=== PATIENT | female | born 1965 | race Caucasian/White ===

== ENCOUNTER → 2017-03-30 | Outpatient (CLI) | payer OTHER ==
[~2017-03-30] MED LIST: ALBU90OI INH; ALBUIS; Accuneb0.63 MG/3 INH; Accuneb1.25 MG/3 INH; BENZ100A PO; Bactrim Ds Tab1 EACH PO; Buspirone HCl30 MG PO; CEPH500 PO; CLON.5 PO; CLON1 PO; CONEST.625 PO; CYCL10 PO; Coumadin5 MG PO; Cyclobenzaprine5 MG PO; DOXE10 PO; ENOX100I SC; ENOX120I SC; ENOX40I SC; EPIN.3I IM; Epipen0.3 MG/0.3 IM; FLUSAL2505 INH; FURO40 PO; GABA400 PO; GABA600 PO; HYDR1TAB94 PO; LIDO5TP TOP; LIDO700A20 TOP; LORA10 PO; METF500 PO; METF500C PO; METPRE4DP PO; MONT10T PO; Micro-K10 MEQ; Miralax17 GM PO; NICO7 TOP; NYST100P TOP; Norco 10-325 T1 EACH PO; Norco 5-325 Ta1 EACH PO; Norco 7.5-3251 EACH PO; OMEP20ER PO; OMEP40CA12 PO; OXYACE5T PO; OXYC5 PO; Omeprazole20 M1 PO; PANT40 PO; PRAZ1 PO; PRAZ2 PO; PRAZ5 PO; PRED10 PO; PREG75 PO; PROBIOTIC1 EACH PO; PRODEXEL PO; Pepcid20 MG PO; Percocet 5-3251 EACH PO; Prednisone20 MG PO; QUET100 PO; Roxicodone5 MG PO; SERT100 PO; TOPI25 PO; TRAM50 PO; Ultram50 MG PO; VENL150ER PO; VENL75ER PO; Valerian Root500 MG PO; Ventolin Soln3 ML INH; Ventolin/Prove6.7 GM INH; WARF3; WARF3 PO; WARF4 PO
== END ==
LOC: LAB 16:46
PROVIDERS: Student in an Organized Health Care Education/Training Program
DX: B00.9 Herpesviral infection, unspecified (principal)
CPT/HCPCS: 87798

== ENCOUNTER → 2017-09-23 | Outpatient (CLI) | payer OTHER ==
[~2017-09-23] MED LIST changes: -LIDO700A20 TOP; -Miralax17 GM PO; -Norco 10-325 T1 EACH PO; -Norco 7.5-3251 EACH PO; -PANT40 PO; -PRAZ5 PO; -PREG75 PO; -PROBIOTIC1 EACH PO; -VENL150ER PO
== END | disposition home or self-care (01) ==
LOC: LAB SHORT 16:56 → LAB EV 16:56
DX: L02.216 Cutaneous abscess of umbilicus (principal)
CPT/HCPCS: 87070; 87075; 87205

== ENCOUNTER → 2017-09-25 | Outpatient (CLI) | payer OTHER ==
[~2017-09-25] MED LIST changes: +Norco 7.5-3251 EACH PO; +PANT40 PO; +PRAZ5 PO; +PREG75 PO; +VENL150ER PO
[2017-09-25 15:06] LABS: BASOPHILS ABSOLUTE AUTO 0.02 K/mm3 (0.00-0.23); BASOPHILS PERCENT AUTO 0 % (0-2); EOSINOPHILS PERCENT AUTO 0 % (0-6); IMMATURE GRAN ABSOLUTE AUTO 0.02 K/mm3 (0.00-0.10); IMMATURE GRAN PERCENT AUTO 0 % (0-1); LYMPHOCYTES PERCENT AUTO 27 % (21-46); MONOCYTES PERCENT AUTO 6 % (4-13); Mean Corpuscular HGB 32.3 pg (26.0-34.0); Mean Corpuscular HGB Conc 33.3 g/dL (31.5-36.5); Mean Corpuscular Volume 97 fL (80-100); Mean Platelet Volume 10.4 fL (9.1-12.4); NEUTROPHILS ABSOLUTE AUTO 4.75 K/mm3 (1.96-9.15); NEUTROPHILS PERCENT AUTO 67 % (41-73); Platelet Count 162 K/mm3 (150-400); RDW Coefficient Variation 13.8 % (11.7-14.2); RDW Standard Deviation 49.2 fL (35.1-46.3); Red Blood Cell Count 4.65 M/mm3 (3.80-5.20); White Blood Cell Count 7.09 K/mm3 (4.00-11.30)
[2017-09-25 15:21] LABS: Alanine Aminotransfer (ALT/SGP 28 U/L (12-78); Albumin, Blood 3.9 g/dL (3.4-5.0); Albumin/Globulin Ratio 1.1 (0.8-1.8); Alk Phos 64 U/L (40-126); Anion Gap 8 mmol/L (6-16); Aspartate Aminotrans (AST/SGOT 20 U/L (12-37); Bilirubin, Total 0.4 mg/dL (0.1-1.0); Blood Urea Nitrogen 10 mg/dL (8-24); Bun/Creatinine Ratio 13.5 (12.0-20.0); CO2, Blood 27 mmol/L (21-32); Calcium, Blood 9.1 mg/dL (8.5-10.1); Chloride, Blood 105 mmol/L (98-108); Creatinine, Blood 0.74 mg/dL (0.40-1.00); Globulin, Blood 3.6 g/dL (2.2-4.0); Glomerular Filtration Rate >60 (60-); Glucose, Blood 89 mg/dL (70-99); Potassium, Blood 4.2 mmol/L (3.5-5.5); Sodium, Blood 140 mmol/L (136-145); Total Protein, Blood 7.5 g/dL (6.4-8.2)
== END ==
LOC: LAB SHORT 15:00 → LAB EV 15:00
PROVIDERS: Physician Assistant Surgical
DX: L03.90 Cellulitis, unspecified (principal)
CPT/HCPCS: 80053; 83880; 85025

== ENCOUNTER 2017-10-03 13:38 | Observation (INO) | payer OTHER ==
[~2017-10-03] VITALS: Ht 177.8 cm; Wt 114.8 kg
[~2017-10-03 13:38] MED LIST changes: -Norco 7.5-3251 EACH PO; -PANT40 PO; -PRAZ5 PO; -PREG75 PO; -VENL150ER PO
[2017-10-03 15:00] LABS: BASOPHILS ABSOLUTE AUTO 0.02 K/mm3 (0.00-0.23); BASOPHILS PERCENT AUTO 0 % (0-2); EOSINOPHILS PERCENT AUTO 0 % (0-6); Hematocrit 43.2 % (33.0-51.0); Hemoglobin 14.2 g/dL (11.5-16.0); IMMATURE GRAN ABSOLUTE AUTO 0.02 K/mm3 (0.00-0.10); IMMATURE GRAN PERCENT AUTO 0 % (0-1); LYMPHOCYTES ABSOLUTE AUTO 2.25 K/mm3 (0.84-5.20); LYMPHOCYTES PERCENT AUTO 29 % (21-46); MONOCYTES ABSOLUTE AUTO 0.38 K/mm3 (0.16-1.47); MONOCYTES PERCENT AUTO 5 % (4-13); Mean Corpuscular HGB Conc 32.9 g/dL (31.5-36.5); Mean Corpuscular Volume 97 fL (80-100); Mean Platelet Volume 10.5 fL (9.1-12.4); NEUTROPHILS ABSOLUTE AUTO 5.12 K/mm3 (1.96-9.15); NEUTROPHILS PERCENT AUTO 66 % (41-73); Platelet Count 160 K/mm3 (150-400); RDW Coefficient Variation 13.3 % (11.7-14.2); RDW Standard Deviation 47.2 fL (35.1-46.3); Red Blood Cell Count 4.44 M/mm3 (3.80-5.20); White Blood Cell Count 7.79 K/mm3 (4.00-11.30)
[2017-10-03 15:19] LABS: Alanine Aminotransfer (ALT/SGP 22 U/L (12-78); Albumin, Blood 3.6 g/dL (3.4-5.0); Albumin/Globulin Ratio 1.1 (0.8-1.8); Alk Phos 56 U/L (50-136); Anion Gap 8 mmol/L (6-16); Aspartate Aminotrans (AST/SGOT 18 U/L (12-37); Bilirubin, Total 0.3 mg/dL (0.1-1.0); Blood Urea Nitrogen 13 mg/dL (8-24); Bun/Creatinine Ratio 21.8 (12.0-20.0); CO2, Blood 28 mmol/L (21-32); Calcium, Blood 8.8 mg/dL (8.5-10.1); Chloride, Blood 108 mmol/L (98-108); Globulin, Blood 3.3 g/dL (2.2-4.0); Glomerular Filtration Rate >60 (60-); Glucose, Blood 90 mg/dL (70-99); Potassium, Blood 3.9 mmol/L (3.5-5.5); Sodium, Blood 144 mmol/L (136-145); Total Protein, Blood 6.9 g/dL (6.4-8.2)
[2017-10-03] MEDS ORDERED: PREG75 PO ×2 (16:11)
[2017-10-03] MEDS ORDERED: PRAZ5 PO ×2 (16:11)
[2017-10-03] MEDS ORDERED: VENL150ER PO ×2 (16:12)
[2017-10-03] MEDS ORDERED: Norco 7.5-3251 EACH PO ×2 (18:33)
[2017-10-03] MEDS ORDERED: PANT40 PO ×2 (18:35)
[2017-10-04 04:56] LABS: BASOPHILS ABSOLUTE AUTO 0.02 K/mm3 (0.00-0.23); BASOPHILS PERCENT AUTO 0 % (0-2); EOSINOPHILS PERCENT AUTO 0 % (0-6); Hematocrit 39.3 % (33.0-51.0); Hemoglobin 12.8 g/dL (11.5-16.0); IMMATURE GRAN ABSOLUTE AUTO 0.01 K/mm3 (0.00-0.10); IMMATURE GRAN PERCENT AUTO 0 % (0-1); LYMPHOCYTES ABSOLUTE AUTO 2.89 K/mm3 (0.84-5.20); LYMPHOCYTES PERCENT AUTO 42 % (21-46); MONOCYTES ABSOLUTE AUTO 0.39 K/mm3 (0.16-1.47); MONOCYTES PERCENT AUTO 6 % (4-13); Mean Corpuscular HGB 31.7 pg (26.0-34.0); Mean Corpuscular HGB Conc 32.6 g/dL (31.5-36.5); Mean Corpuscular Volume 97 fL (80-100); Mean Platelet Volume 10.8 fL (9.1-12.4); NEUTROPHILS ABSOLUTE AUTO 3.55 K/mm3 (1.96-9.15); NEUTROPHILS PERCENT AUTO 52 % (41-73); Platelet Count 157 K/mm3 (150-400); RDW Coefficient Variation 13.2 % (11.7-14.2); RDW Standard Deviation 47.6 fL (35.1-46.3); Red Blood Cell Count 4.04 M/mm3 (3.80-5.20); White Blood Cell Count 6.86 K/mm3 (4.00-11.30)
[2017-10-04 05:25] LABS: Alanine Aminotransfer (ALT/SGP 18 U/L (12-78); Alk Phos 49 U/L (50-136); Anion Gap 8 mmol/L (6-16); Aspartate Aminotrans (AST/SGOT 16 U/L (12-37); Bilirubin, Total 0.4 mg/dL (0.1-1.0); Blood Urea Nitrogen 13 mg/dL (8-24); Bun/Creatinine Ratio 20.7 (12.0-20.0); CO2, Blood 27 mmol/L (21-32); Calcium, Blood 8.2 mg/dL (8.5-10.1); Chloride, Blood 109 mmol/L (98-108); Creatinine, Blood 0.63 mg/dL (0.40-1.00); Globulin, Blood 2.9 g/dL (2.2-4.0); Glomerular Filtration Rate >60 (60-); Glucose, Blood 84 mg/dL (70-99); Magnesium, Blood 1.9 mg/dL (1.6-2.4); Potassium, Blood 3.6 mmol/L (3.5-5.5); Sodium, Blood 144 mmol/L (136-145); Total Protein, Blood 5.9 g/dL (6.4-8.2)
[2017-10-05 08:47] LABS: Vancomycin, Trough 13.5 ug/mL (5.0-10.0)
[2017-10-06 05:41] LABS: BASOPHILS ABSOLUTE AUTO 0.01 K/mm3 (0.00-0.23); BASOPHILS PERCENT AUTO 0 % (0-2); EOSINOPHILS ABSOLUTE AUTO 0.01 K/mm3 (0.00-0.68); EOSINOPHILS PERCENT AUTO 0 % (0-6); Hematocrit 39.2 % (33.0-51.0); Hemoglobin 12.9 g/dL (11.5-16.0); IMMATURE GRAN ABSOLUTE AUTO 0.02 K/mm3 (0.00-0.10); IMMATURE GRAN PERCENT AUTO 0 % (0-1); LYMPHOCYTES ABSOLUTE AUTO 2.46 K/mm3 (0.84-5.20); LYMPHOCYTES PERCENT AUTO 44 % (21-46); MONOCYTES ABSOLUTE AUTO 0.43 K/mm3 (0.16-1.47); MONOCYTES PERCENT AUTO 8 % (4-13); Mean Corpuscular HGB 32.7 pg (26.0-34.0); Mean Corpuscular HGB Conc 32.9 g/dL (31.5-36.5); Mean Corpuscular Volume 99 fL (80-100); Mean Platelet Volume 10.4 fL (9.1-12.4); NEUTROPHILS ABSOLUTE AUTO 2.73 K/mm3 (1.96-9.15); NEUTROPHILS PERCENT AUTO 48 % (41-73); Platelet Count 154 K/mm3 (150-400); RDW Coefficient Variation 13.2 % (11.7-14.2); RDW Standard Deviation 48.3 fL (35.1-46.3); Red Blood Cell Count 3.95 M/mm3 (3.80-5.20); White Blood Cell Count 5.66 K/mm3 (4.00-11.30)
[2017-10-06 05:59] LABS: Anion Gap 7 mmol/L (6-16); Blood Urea Nitrogen 11 mg/dL (8-24); Bun/Creatinine Ratio 18.2 (12.0-20.0); CO2, Blood 29 mmol/L (21-32); Calcium, Blood 8.4 mg/dL (8.5-10.1); Chloride, Blood 108 mmol/L (98-108); Creatinine, Blood 0.61 mg/dL (0.40-1.00); Glomerular Filtration Rate >60 (60-); Glucose, Blood 87 mg/dL (70-99); Sodium, Blood 144 mmol/L (136-145)
[2017-10-07] MEDS ORDERED: Norco 10-325 T1 EACH PO ×2 (16:24)
[2017-10-07] MEDS ORDERED: Miralax17 GM PO ×2 (16:26)
[2017-10-07] MEDS ORDERED: CEPH500 PO ×2 (16:26)
[2017-10-07] MEDS ORDERED: PROBIOTIC1 EACH PO ×2 (16:27)
== END 2017-10-07 18:04 | disposition home or self-care (01) ==
LOC: ER 13:38 → MEDS 13:39 → ER 16:33 → MEDS 17:49 → ENPENDDIS 10-07 16:00 → MEDS 10-07 18:04
PROVIDERS: Internal Medicine; Physician Assistant
DX: L98.499 Non-pressure chronic ulcer of skin of other sites with unspecified severity (principal); L03.316 Cellulitis of umbilicus; E11.9 Type 2 diabetes mellitus without complications; J44.9 Chronic obstructive pulmonary disease, unspecified; E66.9 Obesity, unspecified; F17.200 Nicotine dependence, unspecified, uncomplicated; Z79.899 Other long term (current) drug therapy; Z88.6 Allergy status to analgesic agent; Z88.8 Allergy status to other drugs, medicaments and biological substances
CPT/HCPCS: 36415; 74177; 80048; 80053; 80202; 82947; 83036; 83735; 85025; 94760; 96365; 96366; 96367; 96375; 96376; 99284-25; G0378; J0690; J1650; J2543; J3010; J3370; J7030; J7050; Q9967

== ENCOUNTER 2017-10-11 01:57 | Emergency (ER) | payer OTHER ==
[~2017-10-11] VITALS: Ht 177.8 cm; Wt 129.3 kg
[~2017-10-11 01:57] MED LIST changes: +Miralax17 GM PO; +Norco 10-325 T1 EACH PO; +Norco 7.5-3251 EACH PO; +PANT40 PO; +PRAZ5 PO; +PREG75 PO; +PROBIOTIC1 EACH PO; +VENL150ER PO
[2017-10-11] MEDS ORDERED: Bactrim Ds Tab1 EACH PO (03:03)
== END 2017-10-11 03:12 | disposition home or self-care (01) ==
LOC: ER 01:57
DX: L03.316 Cellulitis of umbilicus (principal); L98.499 Non-pressure chronic ulcer of skin of other sites with unspecified severity; F32.9 Major depressive disorder, single episode, unspecified; E11.40 Type 2 diabetes mellitus with diabetic neuropathy, unspecified; F41.9 Anxiety disorder, unspecified; J44.9 Chronic obstructive pulmonary disease, unspecified; F17.200 Nicotine dependence, unspecified, uncomplicated; Z88.8 Allergy status to other drugs, medicaments and biological substances; Z88.6 Allergy status to analgesic agent; Z88.5 Allergy status to narcotic agent; Z79.899 Other long term (current) drug therapy; Z79.84 Long term (current) use of oral hypoglycemic drugs
CPT/HCPCS: 87070; 87077; 87186; 87205; 99283

== ENCOUNTER 2017-10-14 17:05 | Emergency (ER) | payer OTHER ==
[~2017-10-14] VITALS: Ht 177.8 cm; Wt 114.8 kg
== END 2017-10-14 17:41 | disposition home or self-care (01) ==
LOC: ER 17:05
DX: L98.499 Non-pressure chronic ulcer of skin of other sites with unspecified severity (principal); E11.40 Type 2 diabetes mellitus with diabetic neuropathy, unspecified; F32.9 Major depressive disorder, single episode, unspecified; F41.9 Anxiety disorder, unspecified; J44.9 Chronic obstructive pulmonary disease, unspecified; F17.200 Nicotine dependence, unspecified, uncomplicated; Z88.8 Allergy status to other drugs, medicaments and biological substances; Z88.6 Allergy status to analgesic agent; Z88.5 Allergy status to narcotic agent; Z79.899 Other long term (current) drug therapy; Z79.84 Long term (current) use of oral hypoglycemic drugs; Z79.51 Long term (current) use of inhaled steroids
CPT/HCPCS: 99282

== ENCOUNTER 2017-11-08 17:17 | Emergency (ER) | payer OTHER ==
[~2017-11-08] VITALS: Ht 177.8 cm; Wt 108.9 kg
[2017-11-08 18:47] LABS: BASOPHILS ABSOLUTE AUTO 0.01 K/mm3 (0.00-0.23); BASOPHILS PERCENT AUTO 0 % (0-2); EOSINOPHILS ABSOLUTE AUTO 0.01 K/mm3 (0.00-0.68); EOSINOPHILS PERCENT AUTO 0 % (0-6); Hematocrit 42.8 % (33.0-51.0); Hemoglobin 14.2 g/dL (11.5-16.0); IMMATURE GRAN ABSOLUTE AUTO 0.02 K/mm3 (0.00-0.10); IMMATURE GRAN PERCENT AUTO 0 % (0-1); LYMPHOCYTES PERCENT AUTO 35 % (21-46); MONOCYTES ABSOLUTE AUTO 0.46 K/mm3 (0.16-1.47); MONOCYTES PERCENT AUTO 6 % (4-13); Mean Corpuscular HGB 32.3 pg (26.0-34.0); Mean Corpuscular HGB Conc 33.2 g/dL (31.5-36.5); Mean Corpuscular Volume 97 fL (80-100); Mean Platelet Volume 10.3 fL (9.1-12.4); NEUTROPHILS ABSOLUTE AUTO 4.76 K/mm3 (1.96-9.15); NEUTROPHILS PERCENT AUTO 59 % (41-73); Platelet Count 178 K/mm3 (150-400); RDW Coefficient Variation 13.2 % (11.7-14.2); White Blood Cell Count 8.06 K/mm3 (4.00-11.30)
[2017-11-08 18:56] LABS: Alanine Aminotransfer (ALT/SGP 40 U/L (12-78); Albumin, Blood 3.8 g/dL (3.4-5.0); Albumin/Globulin Ratio 1.1 (0.8-1.8); Alk Phos 57 U/L (50-136); Anion Gap 6 mmol/L (6-16); Aspartate Aminotrans (AST/SGOT 24 U/L (12-37); Bilirubin, Total 0.5 mg/dL (0.1-1.0); Blood Urea Nitrogen 10 mg/dL (8-24); Bun/Creatinine Ratio 15.4 (12.0-20.0); CO2, Blood 27 mmol/L (21-32); Calcium, Blood 8.9 mg/dL (8.5-10.1); Chloride, Blood 106 mmol/L (98-108); Creatinine, Blood 0.65 mg/dL (0.40-1.00); Globulin, Blood 3.5 g/dL (2.2-4.0); Glomerular Filtration Rate >60 (60-); Glucose, Blood 85 mg/dL (70-99); Potassium, Blood 4.1 mmol/L (3.5-5.5); Sodium, Blood 139 mmol/L (136-145); Total Protein, Blood 7.3 g/dL (6.4-8.2); Troponin I <0.015 ng/mL (0.000-0.040)
== END 2017-11-08 20:59 | disposition home or self-care (01) ==
LOC: ER 17:17
PROVIDERS: Emergency Medicine
DX: R07.9 Chest pain, unspecified (principal); E11.40 Type 2 diabetes mellitus with diabetic neuropathy, unspecified; F32.9 Major depressive disorder, single episode, unspecified; F41.9 Anxiety disorder, unspecified; J44.9 Chronic obstructive pulmonary disease, unspecified; F17.210 Nicotine dependence, cigarettes, uncomplicated; Z88.8 Allergy status to other drugs, medicaments and biological substances; Z88.6 Allergy status to analgesic agent; Z88.5 Allergy status to narcotic agent; Z91.018 Allergy to other foods; Z79.899 Other long term (current) drug therapy; Z79.51 Long term (current) use of inhaled steroids; Z79.84 Long term (current) use of oral hypoglycemic drugs
CPT/HCPCS: 71046; 80053; 83880; 84484; 85025; 93005; 93010; 96374; 96376; 99284-25; J3010

== ENCOUNTER 2018-03-04 14:33 | Inpatient (IN) | payer OTHER ==
[~2018-03-04] VITALS: Ht 160 cm; Wt 100.0 kg
[~2018-03-04 14:33] MED LIST changes: +LIDO700A20 TOP
[2018-03-04 15:03] LABS: BASOPHILS ABSOLUTE AUTO 0.03 K/mm3 (0.00-0.23); BASOPHILS PERCENT AUTO 0 % (0-2); EOSINOPHILS ABSOLUTE AUTO 0.03 K/mm3 (0.00-0.68); EOSINOPHILS PERCENT AUTO 0 % (0-6); Hematocrit 43.8 % (33.0-51.0); Hemoglobin 14.3 g/dL (11.5-16.0); IMMATURE GRAN ABSOLUTE AUTO 0.04 K/mm3 (0.00-0.10); IMMATURE GRAN PERCENT AUTO 0 % (0-1); LYMPHOCYTES ABSOLUTE AUTO 2.84 K/mm3 (0.84-5.20); LYMPHOCYTES PERCENT AUTO 26 % (21-46); MONOCYTES ABSOLUTE AUTO 0.76 K/mm3 (0.16-1.47); MONOCYTES PERCENT AUTO 7 % (4-13); Mean Corpuscular HGB 31.4 pg (26.0-34.0); Mean Corpuscular HGB Conc 32.6 g/dL (31.5-36.5); Mean Corpuscular Volume 96 fL (80-100); Mean Platelet Volume 10.2 fL (9.1-12.4); NEUTROPHILS ABSOLUTE AUTO 7.45 K/mm3 (1.96-9.15); NEUTROPHILS PERCENT AUTO 67 % (41-73); Platelet Count 182 K/mm3 (150-400); RDW Coefficient Variation 12.9 % (11.7-14.2); RDW Standard Deviation 46.1 fL (35.1-46.3); Red Blood Cell Count 4.55 M/mm3 (3.80-5.20); White Blood Cell Count 11.15 K/mm3 (4.00-11.30)
[2018-03-04 15:19] LABS: PO2 Arterial 54.5 mmHg (80-100); pH Blood Arterial 7.43 (7.35-7.45)
[2018-03-04 15:30] LABS: Alanine Aminotransfer (ALT/SGP 19 U/L (12-78); Albumin, Blood 3.4 g/dL (3.4-5.0); Albumin/Globulin Ratio 0.8 (0.8-1.8); Alk Phos 83 U/L (50-136); Anion Gap 6 mmol/L (6-16); Aspartate Aminotrans (AST/SGOT 13 U/L (12-37); Bilirubin, Total 0.5 mg/dL (0.1-1.0); Blood Urea Nitrogen 7 mg/dL (8-24); Bun/Creatinine Ratio 11.4 (12.0-20.0); CO2, Blood 26 mmol/L (21-32); Calcium, Blood 8.7 mg/dL (8.5-10.1); Chloride, Blood 103 mmol/L (98-108); Creatinine, Blood 0.61 mg/dL (0.40-1.00); Glomerular Filtration Rate >60 (60-); Glucose, Blood 103 mg/dL (70-99); Potassium, Blood 3.9 mmol/L (3.5-5.5); Sodium, Blood 135 mmol/L (136-145); Total Protein, Blood 7.4 g/dL (6.4-8.2); Troponin I <0.015 ng/mL (0.000-0.040)
[2018-03-04 16:24] LABS: International Normalized Ratio 0.98; Prothrombin Time Results 10.1 Sec (9.7-11.5)
[2018-03-04 17:20] LABS: Influenza A Negative (NEGATIVE); Influenza B Negative (NEGATIVE)
[2018-03-05 05:33] LABS: Hematocrit 39.2 % (33.0-51.0); Hemoglobin 12.6 g/dL (11.5-16.0)
[2018-03-05 05:48] LABS: International Normalized Ratio 1.03; Prothrombin Time Results 10.6 Sec (9.7-11.5)
[2018-03-05 06:05] LABS: Anion Gap 8 mmol/L (6-16); Blood Urea Nitrogen 13 mg/dL (8-24); CO2, Blood 27 mmol/L (21-32); Calcium, Blood 8.5 mg/dL (8.5-10.1); Chloride, Blood 101 mmol/L (98-108); Creatinine, Blood 0.69 mg/dL (0.40-1.00); Glomerular Filtration Rate >60 (60-); Glucose, Blood 103 mg/dL (70-99); Potassium, Blood 3.6 mmol/L (3.5-5.5); Sodium, Blood 136 mmol/L (136-145); Troponin I <0.015 ng/mL (0.000-0.040)
--- NOTE | 2018-03-05 07:27 | NUR ---
SHIFT SUMMARY PT HAD SOME CONTINUED PAIN UPON ARRIVAL TO FLOOR. PT HAD SOME RELIEF BUT BEGAN TO COMPLAIN OF HEADACHE. PT FELL ASLEEP FOR SHORT PERIOD. PT WOKE UP WITH CONTINUED CX/ BACK PAIN. PT IS BREATHING EASY AND SLEEPING CALL LIGHT IN REACH.
--- NOTE | 2018-03-05 09:26 | NUR ---
ECHOCARDIOGRAM COMPLETED
[2018-03-05] MEDS ORDERED: VENL75ER PO ×2 (16:08)
--- NOTE | 2018-03-05 18:29 | NUR ---
PT AOX4 AND COOPERATIVE OF ALL CARE. PT STARTED SHIFT WITH PAIN RELATED TO L LUNG AREA. PT WAS NOT GETTING RELIEF FROM NORCO ORDER. DOCOTOR ORDERED FENTYNAL AND THIS SEEMS TO HAVE BEEN EFFECTIVE FOR PT TO RELIEVE SOME OF HER DISCOMFORT. PT IS NOT MOVING MUCH AIR THROUGH HER LEFT LUNG AT THIS TIME, BUT HAS BEEN IN THE MID 90s FOR O2. WILL MONITOR CLOSELY.
[2018-03-06 05:21] LABS: International Normalized Ratio 1.07
--- NOTE | 2018-03-06 07:39 | NUR ---
a+o but drowsy, call light in reach, no complaint of leg pain, no sob, 2L via nc, saline locked, successfully medicated for pain
--- NOTE | 2018-03-06 15:01 | NUR ---
TALKED TO ABOUT TRAMSDOL NOT HELPING FOR PAIN PER PATIENT. D'C TRAMADOL. FENTANYL PATCH 50 MCG, TYLENOL 650MG Q 6 PRN.
--- NOTE | 2018-03-06 16:18 | NUR ---
PATIENT ALERT AND ORIENTED. DROWSEY FOR 1/2 OF SHIFT W/PATIENT STATING NABILA MAKES HER DROWSEY. PATIENT REFUSES 2PM DOSE. LT RIB/LUNG PAIN MOSTLY DURING MOVEMENT/COUGHING. PAIN MEDS ADJUSTED PER . PATIENT AWARE WILL BE ON COUMADIN FOR REST OF HER LIFE. WHEN INR IS WHERE IT SHOULD BE WILL BE DISCHARGED. COOPERATIVE. PLEASANT. TELE ON AND PER [employer] PROFESSIONAL [employer] SR AT 77. BED IN LOW POSITION. SHOWER TODAY. WILL CONTINUE TO MONITOR.
--- NOTE | 2018-03-06 17:25 | NUR ---
PT GAVE THIS PROJECT MANAGEMENT INTERN TO PERMISSION TO GIVE CARE ON 03/07/2018 AT 1400.
--- NOTE | 2018-03-06 17:52 | NUR ---
ALERT, ORIENTED. MORE AWAKE LAST HALF OF SHIFT. GOOD APPETITE. DISCUSS HOW FENTANYL PATCH WORKS W/PATIENT STATING "SHE KNOWS" AND FEELS IT DOESN'T WORK WELL. NO ACUTE CHANGES. WILL CONTINUE TO MONITOR.
[2018-03-07 05:04] LABS: Hematocrit 35.7 % (33.0-51.0); Hemoglobin 11.6 g/dL (11.5-16.0); Mean Corpuscular HGB Conc 32.5 g/dL (31.5-36.5); Mean Corpuscular Volume 96 fL (80-100); Mean Platelet Volume 9.8 fL (9.1-12.4); Platelet Count 148 K/mm3 (150-400); RDW Coefficient Variation 12.6 % (11.7-14.2); RDW Standard Deviation 43.7 fL (35.1-46.3); Red Blood Cell Count 3.74 M/mm3 (3.80-5.20); White Blood Cell Count 5.44 K/mm3 (4.00-11.30)
[2018-03-07 05:18] LABS: International Normalized Ratio 1.52; Prothrombin Time Results 15.3 Sec (9.7-11.5)
[2018-03-07 05:36] LABS: Anion Gap 7 mmol/L (6-16); Blood Urea Nitrogen 7 mg/dL (8-24); Bun/Creatinine Ratio 13.5 (12.0-20.0); CO2, Blood 29 mmol/L (21-32); Calcium, Blood 8.5 mg/dL (8.5-10.1); Chloride, Blood 103 mmol/L (98-108); Creatinine, Blood 0.52 mg/dL (0.40-1.00); Glomerular Filtration Rate >60 (60-); Glucose, Blood 92 mg/dL (70-99); Potassium, Blood 3.8 mmol/L (3.5-5.5); Sodium, Blood 139 mmol/L (136-145)
--- NOTE | 2018-03-07 07:35 | NUR ---
SHIFT SUMMARY PT HAD SOME INCREASED DISCOMFORT AT BEGINNING OF SHIFT. PT TX PER EMAR AND RESPONDED WELL. ONCE COMFORTABLE PT SLEPT FOR MOST OF SHIFT. THIS AM PT HAD INCREASED BLLE SWELLING NOTED AND PT STATED HER HANDS FELT PUFFY. PT IS BREATHING EASY AND IS COMFORTABLE. CALL LIGHT IN REACH.
--- NOTE | 2018-03-07 16:49 | NUR ---
SHIFT SUMMARY NO ACUTE CHANGES. PATIENT MEDICATED FOR PAIN SEVERAL TIMES DURING SHIFT. NO COMPLAINTS OF SHORTNESS OF BREATH BUT PATIENT HAS HAD A COUGH. ORDERS FOR ROBITUSSIN W/CODEINE GIVEN. CALL LIGHT IN REACH, WILL CONTINUE TO MONITOR.
--- NOTE | 2018-03-08 05:01 | NUR ---
VSS, AFEBRILE, A/O, 18G L FA, TELE: NSR, SL, DVT L UPPER THIGH, CBG ACHS, PT C/O DISLIKING HER GUIFENSIN/CODEINE COUGH SYRUP AND WANTED THE IV FENTANYL BACK INSTEAD. HOSPITALIST DENIED, BUT GAVE TRAMADOL INSTEAD. PT SLEPT WELL OVER NOC. NO FURTHER C/O PAIN. INDEPENDENT IN THE ROOM, JUNE D/C TODAY.
[2018-03-08 05:22] LABS: International Normalized Ratio 3.44
[2018-03-08] MEDS ORDERED: METO10 PO ×2 (16:29)
[2018-03-08] MEDS ORDERED: XARELTO15 MG PO ×2 (16:31)
--- NOTE | 2018-03-08 17:24 | NUR ---
DISCHARGE DISCHARGE MEDICATIONS AND INSTRUCTIONS EXPLAINED TO PATIENT. PATIENT STATED UNDERSTANDING. BELONGINGS WITH PATIENT. IV REMOVED WITHOUT DIFFCULTY. PATIENT TRANSFERED TO PRIVATE VEHICLE VIA WHEELCHAIR.
== END 2018-03-08 17:24 | disposition home or self-care (01) | DRG 175 ==
LOC: ER 14:33 → MEDS 19:25 → ENPENDDIS 03-08 14:44 → MEDS 03-08 17:24
PROVIDERS: Emergency Medicine; ADMIT Family Medicine
DX: I26.92 Saddle embolus of pulmonary artery without acute cor pulmonale (principal); J96.01 Acute respiratory failure with hypoxia; I82.402 Acute embolism and thrombosis of unspecified deep veins of left lower extremity; I82.441 Acute embolism and thrombosis of right tibial vein; Z23 Encounter for immunization; E11.9 Type 2 diabetes mellitus without complications; J44.9 Chronic obstructive pulmonary disease, unspecified; E66.9 Obesity, unspecified; R30.0 Dysuria; R82.90 Unspecified abnormal findings in urine; Z86.718 Personal history of other venous thrombosis and embolism; Z86.711 Personal history of pulmonary embolism; Z87.898 Personal history of other specified conditions; Z87.891 Personal history of nicotine dependence; Z88.8 Allergy status to other drugs, medicaments and biological substances; Z88.6 Allergy status to analgesic agent; Z79.899 Other long term (current) drug therapy
CPT/HCPCS: 36415; 36600; 71045; 71260; 80048; 80053; 82803; 82947; 84443; 84484; 85014; 85018; 85025; 85027; 85610; 85730; 87804; 90686; 93005; 93010; 93306; 93970; 94640; 94760; 94761; 96374; 96375; 99285-25; J1170; J1644; J1650; J1885; J3010; Q9967

== ENCOUNTER 2018-03-11 16:45 | Emergency (ER) | payer OTHER ==
[~2018-03-11] VITALS: Ht 177.8 cm; Wt 119.8 kg
[~2018-03-11 16:45] MED LIST changes: +METO10 PO; +XARELTO15 MG PO
[2018-03-11 17:21] LABS: BASOPHILS ABSOLUTE AUTO 0.02 K/mm3 (0.00-0.23); BASOPHILS PERCENT AUTO 0 % (0-2); EOSINOPHILS ABSOLUTE AUTO 0.03 K/mm3 (0.00-0.68); EOSINOPHILS PERCENT AUTO 0 % (0-6); Hematocrit 39.1 % (33.0-51.0); Hemoglobin 12.6 g/dL (11.5-16.0); IMMATURE GRAN ABSOLUTE AUTO 0.03 K/mm3 (0.00-0.10); IMMATURE GRAN PERCENT AUTO 0 % (0-1); LYMPHOCYTES ABSOLUTE AUTO 2.42 K/mm3 (0.84-5.20); LYMPHOCYTES PERCENT AUTO 31 % (21-46); MONOCYTES ABSOLUTE AUTO 0.56 K/mm3 (0.16-1.47); MONOCYTES PERCENT AUTO 7 % (4-13); Mean Corpuscular HGB 31.3 pg (26.0-34.0); Mean Corpuscular HGB Conc 32.2 g/dL (31.5-36.5); Mean Corpuscular Volume 97 fL (80-100); Mean Platelet Volume 9.8 fL (9.1-12.4); NEUTROPHILS ABSOLUTE AUTO 4.77 K/mm3 (1.96-9.15); NEUTROPHILS PERCENT AUTO 61 % (41-73); Platelet Count 214 K/mm3 (150-400); RDW Coefficient Variation 13.1 % (11.7-14.2); RDW Standard Deviation 46.5 fL (35.1-46.3); Red Blood Cell Count 4.03 M/mm3 (3.80-5.20); White Blood Cell Count 7.83 K/mm3 (4.00-11.30)
[2018-03-11 17:35] LABS: International Normalized Ratio 1.7; Prothrombin Time Results 17.2 Sec (9.7-11.5)
[2018-03-11 18:40] LABS: Alanine Aminotransfer (ALT/SGP 31 U/L (12-78); Albumin, Blood 3.1 g/dL (3.4-5.0); Albumin/Globulin Ratio 0.9 (0.8-1.8); Alk Phos 70 U/L (50-136); Anion Gap 6 mmol/L (6-16); Aspartate Aminotrans (AST/SGOT 25 U/L (12-37); Bilirubin, Total 0.2 mg/dL (0.1-1.0); Blood Urea Nitrogen 13 mg/dL (8-24); Bun/Creatinine Ratio 21.2 (12.0-20.0); CO2, Blood 28 mmol/L (21-32); Calcium, Blood 8.1 mg/dL (8.5-10.1); Chloride, Blood 107 mmol/L (98-108); Creatinine, Blood 0.61 mg/dL (0.40-1.00); Globulin, Blood 3.6 g/dL (2.2-4.0); Glomerular Filtration Rate >60 (60-); Glucose, Blood 99 mg/dL (70-99); Potassium, Blood 3.9 mmol/L (3.5-5.5); Sodium, Blood 141 mmol/L (136-145); Total Protein, Blood 6.7 g/dL (6.4-8.2)
== END 2018-03-11 21:42 | disposition home or self-care (01) ==
LOC: ER 16:45
PROVIDERS: Physician Assistant
DX: I82.412 Acute embolism and thrombosis of left femoral vein (principal); I82.432 Acute embolism and thrombosis of left popliteal vein; Z88.5 Allergy status to narcotic agent; Z88.8 Allergy status to other drugs, medicaments and biological substances; Z79.899 Other long term (current) drug therapy; E11.9 Type 2 diabetes mellitus without complications; F43.10 Post-traumatic stress disorder, unspecified; F32.9 Major depressive disorder, single episode, unspecified; J44.9 Chronic obstructive pulmonary disease, unspecified; F17.210 Nicotine dependence, cigarettes, uncomplicated
CPT/HCPCS: 80053; 84484; 85025; 85610; 93005; 93010; 93971; 99284-25

== ENCOUNTER 2018-03-15 20:46 | Emergency (ER) | payer OTHER ==
[~2018-03-15] VITALS: Ht 177.8 cm; Wt 119.8 kg
[2018-03-15] MEDS ORDERED: METF500C PO (21:07)
[2018-03-15] MEDS ORDERED: MONT10T PO (21:20)
[2018-03-15] MEDS ORDERED: TIOT18 INH (21:20)
[2018-03-15] MEDS ORDERED: ALBU90OI INH (21:20)
[2018-03-15] MEDS ORDERED: VENLAFAXINE HCL75 MG PO (21:21)
[2018-03-15 22:55] LABS: Calcium, Ionized (POC) 1.18 mmol/L (1.10-1.46); Chloride (POC) 104 mmol/L (98-108); Creatinine (POC) 0.6 mg/dL (0.6-1.0); Glucose (ISTAT POC) 100 mg/dL (70-99); Hemoglobin (POC) 13.9 g/dL (12.0-16.0); Potassium (POC) 3.7 mmol/L (3.5-5.5); Sodium (POC) 142 mmol/L (135-148); Total CO2 (POC) 25 mmol/L (21-32)
== END 2018-03-15 23:50 | disposition home or self-care (01) ==
LOC: ER 20:46
PROVIDERS: Emergency Medicine
DX: R07.9 Chest pain, unspecified (principal); Z88.6 Allergy status to analgesic agent; Z88.8 Allergy status to other drugs, medicaments and biological substances; Z79.899 Other long term (current) drug therapy; Z79.84 Long term (current) use of oral hypoglycemic drugs; E11.40 Type 2 diabetes mellitus with diabetic neuropathy, unspecified; F43.10 Post-traumatic stress disorder, unspecified; F32.9 Major depressive disorder, single episode, unspecified; F41.9 Anxiety disorder, unspecified; J44.9 Chronic obstructive pulmonary disease, unspecified; F17.200 Nicotine dependence, unspecified, uncomplicated
CPT/HCPCS: 80047; 85014; 93005; 93010; 96374; 96375; 99285-25; J1170; J2060; J2405

== ENCOUNTER 2018-04-12 16:09 | Emergency (ER) | payer OTHER ==
[~2018-04-12] VITALS: Ht 177.8 cm; Wt 124.7 kg
[~2018-04-12 16:09] MED LIST changes: +TIOT18 INH; +VENLAFAXINE HCL75 MG PO
[2018-04-12 17:07] LABS: BASOPHILS ABSOLUTE AUTO 0.02 K/mm3 (0.00-0.23); BASOPHILS PERCENT AUTO 0 % (0-2); EOSINOPHILS ABSOLUTE AUTO 0.01 K/mm3 (0.00-0.68); EOSINOPHILS PERCENT AUTO 0 % (0-6); Hematocrit 43.6 % (33.0-51.0); IMMATURE GRAN ABSOLUTE AUTO 0.02 K/mm3 (0.00-0.10); IMMATURE GRAN PERCENT AUTO 0 % (0-1); LYMPHOCYTES ABSOLUTE AUTO 2.44 K/mm3 (0.84-5.20); LYMPHOCYTES PERCENT AUTO 34 % (21-46); MONOCYTES ABSOLUTE AUTO 0.38 K/mm3 (0.16-1.47); MONOCYTES PERCENT AUTO 5 % (4-13); Mean Corpuscular HGB 30.8 pg (26.0-34.0); Mean Corpuscular HGB Conc 32.1 g/dL (31.5-36.5); Mean Corpuscular Volume 96 fL (80-100); Mean Platelet Volume 10.4 fL (9.1-12.4); NEUTROPHILS ABSOLUTE AUTO 4.23 K/mm3 (1.96-9.15); NEUTROPHILS PERCENT AUTO 60 % (41-73); Platelet Count 164 K/mm3 (150-400); RDW Coefficient Variation 13.4 % (11.7-14.2); RDW Standard Deviation 47.8 fL (35.1-46.3); Red Blood Cell Count 4.55 M/mm3 (3.80-5.20)
[2018-04-12 17:30] LABS: Alanine Aminotransfer (ALT/SGP 24 U/L (12-78); Albumin, Blood 3.5 g/dL (3.4-5.0); Albumin/Globulin Ratio 1.1 (0.8-1.8); Alk Phos 63 U/L (50-136); Anion Gap 5 mmol/L (6-16); Aspartate Aminotrans (AST/SGOT 17 U/L (12-37); Bilirubin, Total 0.3 mg/dL (0.1-1.0); Blood Urea Nitrogen 7 mg/dL (8-24); Bun/Creatinine Ratio 13.6 (12.0-20.0); CO2, Blood 28 mmol/L (21-32); Calcium, Blood 8.4 mg/dL (8.5-10.1); Chloride, Blood 108 mmol/L (98-108); Creatinine, Blood 0.51 mg/dL (0.40-1.00); Globulin, Blood 3.2 g/dL (2.2-4.0); Glomerular Filtration Rate >60 (60-); Glucose, Blood 83 mg/dL (70-99); Potassium, Blood 3.8 mmol/L (3.5-5.5); Sodium, Blood 141 mmol/L (136-145); Total Protein, Blood 6.7 g/dL (6.4-8.2)
== END 2018-04-12 21:46 | disposition home or self-care (01) ==
LOC: ER 16:09
PROVIDERS: Emergency Medicine
DX: I27.82 Chronic pulmonary embolism (principal); E11.40 Type 2 diabetes mellitus with diabetic neuropathy, unspecified; F43.10 Post-traumatic stress disorder, unspecified; F41.9 Anxiety disorder, unspecified; F32.9 Major depressive disorder, single episode, unspecified; J44.9 Chronic obstructive pulmonary disease, unspecified; F17.210 Nicotine dependence, cigarettes, uncomplicated; Z88.6 Allergy status to analgesic agent; Z88.8 Allergy status to other drugs, medicaments and biological substances; Z91.018 Allergy to other foods; Z79.84 Long term (current) use of oral hypoglycemic drugs; Z79.899 Other long term (current) drug therapy; Z86.718 Personal history of other venous thrombosis and embolism
CPT/HCPCS: 36415; 71260; 80053; 85025; 93005; 93010; 99285-25; Q9967

== ENCOUNTER 2018-04-26 06:55 | Day surgery (SDC) | payer OTHER ==
[~2018-04-26] VITALS: Ht 175.3 cm; Wt 125.9 kg
[2018-04-26] MEDS ORDERED: PRAZ1 PO (08:10)
[2018-04-26] MEDS ORDERED: METO10 PO (08:11)
[2018-04-26] MEDS ORDERED: PANT40 PO (08:11)
[2018-04-26] MEDS ORDERED: EPIPEN0.3 MG/0.3 IM (08:11)
[2018-04-26] MEDS ORDERED: ALBU3IS INH (08:12)
[2018-04-26] MEDS ORDERED: ENOX120I SC (08:12)
[2018-04-26] MEDS ORDERED: BUDE6HFA INH (08:12)
--- NOTE | 2018-04-26 11:00 | NUR ---
AMBULATED TO BATHROOM. TOLERATED WELL. NO BLEEDING AT RIGHT GROIN SITE.
--- NOTE | 2018-04-26 11:10 | NUR ---
DRESSING FOR DISCHARGE. DISCHARGE INSTRUCTIONS GIVEN. IV REMOVED BY Candida PÉREZ RN. 2X2,COBAN AND MANUAL PRESSURE APPLIED.
--- NOTE | 2018-04-26 11:25 | NUR ---
discharged home via wheelchair. Ex- driving.
== END 2018-04-26 11:25 | disposition home or self-care (01) ==
LOC: MHTC 06:55
DX: I26.92 Saddle embolus of pulmonary artery without acute cor pulmonale (principal); I82.90 Acute embolism and thrombosis of unspecified vein; Z88.8 Allergy status to other drugs, medicaments and biological substances
CPT/HCPCS: 37191; 99152; C1769; C1880; C1894; J1644; J2250; J3010; J7030; Q9967

== ENCOUNTER 2018-04-28 17:30 | Emergency (ER) | payer OTHER ==
[~2018-04-28] VITALS: Ht 177.8 cm; Wt 125.6 kg
[~2018-04-28 17:30] MED LIST changes: +ALBU3IS INH; +BUDE6HFA INH; +EPIPEN0.3 MG/0.3 IM
[2018-04-28 18:18] LABS: BASOPHILS ABSOLUTE AUTO 0.02 K/mm3 (0.00-0.23); BASOPHILS PERCENT AUTO 0 % (0-2); EOSINOPHILS ABSOLUTE AUTO 0.02 K/mm3 (0.00-0.68); EOSINOPHILS PERCENT AUTO 0 % (0-6); Hematocrit 43.5 % (33.0-51.0); IMMATURE GRAN ABSOLUTE AUTO 0.03 K/mm3 (0.00-0.10); IMMATURE GRAN PERCENT AUTO 0 % (0-1); LYMPHOCYTES ABSOLUTE AUTO 2.45 K/mm3 (0.84-5.20); LYMPHOCYTES PERCENT AUTO 27 % (21-46); MONOCYTES ABSOLUTE AUTO 0.61 K/mm3 (0.16-1.47); MONOCYTES PERCENT AUTO 7 % (4-13); Mean Corpuscular HGB 30.8 pg (26.0-34.0); Mean Corpuscular HGB Conc 32.2 g/dL (31.5-36.5); Mean Corpuscular Volume 96 fL (80-100); NEUTROPHILS ABSOLUTE AUTO 6.03 K/mm3 (1.96-9.15); NEUTROPHILS PERCENT AUTO 66 % (41-73); Platelet Count 201 K/mm3 (150-400); RDW Standard Deviation 48.8 fL (35.1-46.3); Red Blood Cell Count 4.55 M/mm3 (3.80-5.20); White Blood Cell Count 9.16 K/mm3 (4.00-11.30)
[2018-04-28 18:33] LABS: International Normalized Ratio 0.93; Prothrombin Time Results 9.6 Sec (9.7-11.5)
[2018-04-28 18:59] LABS: Alanine Aminotransfer (ALT/SGP 43 U/L (12-78); Albumin, Blood 3.4 g/dL (3.4-5.0); Alk Phos 56 U/L (50-136); Anion Gap 5 mmol/L (6-16); Aspartate Aminotrans (AST/SGOT 16 U/L (12-37); Bilirubin, Total 0.3 mg/dL (0.1-1.0); Blood Urea Nitrogen 15 mg/dL (8-24); Bun/Creatinine Ratio 25.9 (12.0-20.0); CO2, Blood 27 mmol/L (21-32); Calcium, Blood 8.5 mg/dL (8.5-10.1); Chloride, Blood 108 mmol/L (98-108); Creatinine, Blood 0.58 mg/dL (0.40-1.00); Globulin, Blood 3.5 g/dL (2.2-4.0); Glomerular Filtration Rate >60 (60-); Glucose, Blood 112 mg/dL (70-99); Potassium, Blood 3.9 mmol/L (3.5-5.5); Sodium, Blood 140 mmol/L (136-145); Total Protein, Blood 6.9 g/dL (6.4-8.2); Troponin I <0.015 ng/mL (0.000-0.040)
== END 2018-04-28 20:43 | disposition home or self-care (01) ==
LOC: ER 17:30
PROVIDERS: Physician Assistant
DX: I27.82 Chronic pulmonary embolism (principal); R51 Headache; E11.40 Type 2 diabetes mellitus with diabetic neuropathy, unspecified; F32.9 Major depressive disorder, single episode, unspecified; F41.9 Anxiety disorder, unspecified; J44.9 Chronic obstructive pulmonary disease, unspecified; F17.210 Nicotine dependence, cigarettes, uncomplicated; Z79.899 Other long term (current) drug therapy; Z79.84 Long term (current) use of oral hypoglycemic drugs; Z88.8 Allergy status to other drugs, medicaments and biological substances; Z88.6 Allergy status to analgesic agent
CPT/HCPCS: 36415; 70450; 71046; 71260; 80053; 84484; 85025; 85610; 85730; 93005; 93010; 96374; 96376; 99285-25; J3010; Q9967

== ENCOUNTER 2018-08-10 17:48 | Observation (INO) | payer OTHER ==
[~2018-08-10] VITALS: Ht 177.8 cm; Wt 130.7 kg
[2018-08-10 18:36] LABS: BASOPHILS ABSOLUTE AUTO 0.03 K/mm3 (0.00-0.23); BASOPHILS PERCENT AUTO 0 % (0-2); EOSINOPHILS ABSOLUTE AUTO 0.04 K/mm3 (0.00-0.68); EOSINOPHILS PERCENT AUTO 1 % (0-6); Hematocrit 44.9 % (33.0-51.0); Hemoglobin 14.8 g/dL (11.5-16.0); IMMATURE GRAN ABSOLUTE AUTO 0.02 K/mm3 (0.00-0.10); IMMATURE GRAN PERCENT AUTO 0 % (0-1); LYMPHOCYTES ABSOLUTE AUTO 2.65 K/mm3 (0.84-5.20); LYMPHOCYTES PERCENT AUTO 35 % (21-46); MONOCYTES ABSOLUTE AUTO 0.54 K/mm3 (0.16-1.47); MONOCYTES PERCENT AUTO 7 % (4-13); Mean Corpuscular HGB 31.1 pg (26.0-34.0); Mean Corpuscular Volume 94 fL (80-100); Mean Platelet Volume 10.8 fL (9.1-12.4); NEUTROPHILS ABSOLUTE AUTO 4.29 K/mm3 (1.96-9.15); NEUTROPHILS PERCENT AUTO 57 % (41-73); Platelet Count 187 K/mm3 (150-400); RDW Coefficient Variation 14.5 % (11.7-14.2); RDW Standard Deviation 50.3 fL (35.1-46.3); Red Blood Cell Count 4.76 M/mm3 (3.80-5.20); White Blood Cell Count 7.57 K/mm3 (4.00-11.30)
[2018-08-10 18:50] LABS: International Normalized Ratio 2.34
[2018-08-10 19:12] LABS: Alanine Aminotransfer (ALT/SGP 29 U/L (12-78); Albumin, Blood 3.9 g/dL (3.4-5.0); Albumin/Globulin Ratio 1.1 (0.8-1.8); Alk Phos 75 U/L (50-136); Anion Gap 7 mmol/L (6-16); Aspartate Aminotrans (AST/SGOT 20 U/L (12-37); Bilirubin, Total 0.4 mg/dL (0.1-1.0); Blood Urea Nitrogen 11 mg/dL (8-24); CO2, Blood 26 mmol/L (21-32); Calcium, Blood 8.9 mg/dL (8.5-10.1); Chloride, Blood 106 mmol/L (98-108); Creatinine, Blood 0.65 mg/dL (0.40-1.00); Globulin, Blood 3.6 g/dL (2.2-4.0); Glomerular Filtration Rate >60 (60-); Glucose, Blood 84 mg/dL (70-99); Potassium, Blood 3.7 mmol/L (3.5-5.5); Sodium, Blood 139 mmol/L (136-145); Total Protein, Blood 7.5 g/dL (6.4-8.2); Troponin I <0.015 ng/mL (0.000-0.040)
[2018-08-10] MEDS ORDERED: SERT100 PO (21:50)
[2018-08-10] MEDS ORDERED: Vitamin K100 MCG PO (21:52)
[2018-08-10] MEDS ORDERED: WARF5 PO (21:52)
[2018-08-10] MEDS ORDERED: TORSE20 PO (21:52)
[2018-08-10] MEDS ORDERED: VITAMIN D5000 UNIT PO (21:53)
[2018-08-10] MEDS ORDERED: POTCHL20ER PO (21:53)
[2018-08-11] MEDS ORDERED: PREG150 PO (03:16)
[2018-08-11] MEDS ORDERED: CLON.5 PO (03:17)
[2018-08-11] MEDS ORDERED: Hair, Skin & N1 EACH PO (03:36)
[2018-08-11] MEDS ORDERED: NICO2 PO (04:23)
--- NOTE | 2018-08-11 07:23 | NUR ---
SHIFT SUMMARY PT ARRIVED TO ROOM APPROX 0300. C/O PAIN IN CHEST SHARP PAIN WHEN BREATHING IN 11/01. NOTIFIED DR SWARTZ HE ORDERED TRAMADOL BUT SHE WAS UPSET SAYING TRAMADOL WOULDN'T DO ANYTHING FOR HER. CALLED HIM BACK AND HE INCREASED THE DOSE TO 100MG AND SAID TO TRY FIRST. TELE SHOWED NSR @ 78 PER SPORTS BOOKMAKER. INDEPENDENT IN ROOM. CALL LIGHT IN REACH.
[2018-08-11] MEDS ORDERED: Percocet 5-3251 EACH PO (18:05)
--- NOTE | 2018-08-11 18:22 | NUR ---
DISCHARGE NOTE PT'S IV DC'D WNL. TELEMETRY DC'D. PT DRESSED IN PERSONAL CLOTHES AND PROVIDED W/PERSONAL BELONGINGS. PT PROVIDED WITH HARDCOPY AND VERBAL INSTRUCTIONS FOR DC RE: DIAGNOSES, MEDICATIONS AND FOLLOW UP APPOINTMENTS. PT ESCORTED OUT VIA WHEELCHAIR WITH BANQUET DIRECTOR. PT HAD NO FURTHER QUESTIONS
[2018-08-23] MEDS ORDERED: PANT40 PO (13:48)
[2018-08-23] MEDS ORDERED: METO10 PO (13:49)
[2018-08-23] MEDS ORDERED: EPIPEN0.3 MG/0.3 (13:50)
[2018-08-23] MEDS ORDERED: PRAZ5 PO (13:50)
[2018-08-23] MEDS ORDERED: BUDE6HFA INH (13:51)
[2018-08-23] MEDS ORDERED: TIOT18 INH (13:51)
[2018-08-23] MEDS ORDERED: COMBIVENT RESPIM4 GM (13:52)
== END 2018-08-11 18:16 | disposition home or self-care (01) ==
LOC: ER 17:48 → MEDS 17:49
PROVIDERS: Physician Assistant; ADMIT Hospitalist
DX: I26.99 Other pulmonary embolism without acute cor pulmonale (principal); J44.9 Chronic obstructive pulmonary disease, unspecified; I82.409 Acute embolism and thrombosis of unspecified deep veins of unspecified lower extremity; E66.01 Morbid (severe) obesity due to excess calories; F43.10 Post-traumatic stress disorder, unspecified; F17.210 Nicotine dependence, cigarettes, uncomplicated; E11.40 Type 2 diabetes mellitus with diabetic neuropathy, unspecified; F32.9 Major depressive disorder, single episode, unspecified; F41.9 Anxiety disorder, unspecified; Z88.6 Allergy status to analgesic agent; Z88.8 Allergy status to other drugs, medicaments and biological substances; Z79.01 Long term (current) use of anticoagulants; Z79.899 Other long term (current) drug therapy
CPT/HCPCS: 36415; 70450; 71046; 80053; 84484; 85025; 85610; 93005; 93010; 99285-25; G0378

== ENCOUNTER 2018-08-24 05:56 | Day surgery (SDC) | payer OTHER ==
[~2018-08-24] VITALS: Ht 175.3 cm; Wt 134.0 kg
[~2018-08-24 05:56] MED LIST changes: +COMBIVENT RESPIM4 GM; +EPIPEN0.3 MG/0.3; +Hair, Skin & N1 EACH PO; +NICO2 PO; +POTCHL20ER PO; +PREG150 PO; +TORSE20 PO; +VITAMIN D5000 UNIT PO; +Vitamin K100 MCG PO; +WARF5 PO
[2018-08-24] MEDS ORDERED: Vitamin K100 MCG PO ×2 (06:31→06:33)
--- NOTE | 2018-08-24 12:45 | NUR ---
PT VERBALIZED UNDERSTANDING OF D/C INSTRUCTIONS. BILATERAL BRACHIAL VENOUS ACCESS SITES WNL, NO ACTIVE BLEEDING OOZING OR PAIN NOTED. LEFT SUBCLAVIAN VEIN ATTEMPTED ACCESS SITES APPEAR TO BE WNL. CLOTH DOT DRESSINGS INTACT. IV REMOVED FROM LW, CATH INTACT, PRESSURE DRESSING APPLIED. NADN AT TIME OF DISPO. IS HERE TO DRIVE PT HOME. PAPERWORK PROVIDED IN [facility]. TAKEN OUT TO PRIVATE VEHICLE VIA W/C. VSS. ENCOURAGED TO FOLLOW UP WITH PROVIDER IF NEEDED.
== END 2018-08-24 12:30 | disposition home or self-care (01) ==
LOC: MHTC 05:56
PROC: 4A023N6 Measurement of Cardiac Sampling and Pressure, Right Heart, Percutaneous Approach (ICD-10-PCS; principal; 2018-08-24)
PROC: B51N1ZZ Fluoroscopy of Left Upper Extremity Veins using Low Osmolar Contrast (ICD-10-PCS; principal; 2018-08-24)
DX: I27.82 Chronic pulmonary embolism (principal); I82.512 Chronic embolism and thrombosis of left femoral vein; Z79.01 Long term (current) use of anticoagulants; K30 Functional dyspepsia; F43.10 Post-traumatic stress disorder, unspecified; F32.9 Major depressive disorder, single episode, unspecified; F41.0 Panic disorder [episodic paroxysmal anxiety]; E11.42 Type 2 diabetes mellitus with diabetic polyneuropathy; J45.909 Unspecified asthma, uncomplicated; J44.9 Chronic obstructive pulmonary disease, unspecified; G89.29 Other chronic pain; E66.01 Morbid (severe) obesity due to excess calories; Z79.899 Other long term (current) drug therapy; Z79.84 Long term (current) use of oral hypoglycemic drugs; Z79.891 Long term (current) use of opiate analgesic; F17.210 Nicotine dependence, cigarettes, uncomplicated; Z88.6 Allergy status to analgesic agent; Z88.1 Allergy status to other antibiotic agents; Z88.8 Allergy status to other drugs, medicaments and biological substances; Z91.018 Allergy to other foods; Z95.828 Presence of other vascular implants and grafts; Z68.41 Body mass index [BMI] 40.0-44.9, adult
CPT/HCPCS: 71046; 76937; 93451; 99152; 99153; C1769; C1894; J1644; J2250; J3010; J7030; Q9967

== ENCOUNTER 2018-10-20 05:37 | Day surgery (SDC) | payer OTHER ==
[~2018-10-20] VITALS: Ht 175.3 cm; Wt 134.0 kg
[2018-10-20] MEDS ORDERED: XARELTO15 MG PO (06:30)
--- NOTE | 2018-10-20 07:35 | NUR ---
Pt arrived at 0735 in recovery room. Pt in recliner wide awake, pt states right wrist pain 9/10. Right radial site without hematoma or bleeding. Sbar from [facility], Mrs. June GRAMAJO. Dr. Britt ordered pain med x1. IV 800 mitchell infusing into left hand grade 0. Ex at beside call light given.
--- NOTE | 2018-10-20 09:46 | NUR ---
0930: 2 CC REMOVED 0940: 2 CC REMOVED 0950: 1 CC ADDED FOR SLIGHT RETURN BLOOD. Pt stable reviewed discharge instructions Pt verbalizes understanding.
--- NOTE | 2018-10-20 10:09 | NUR ---
all air out of tr-band pt resting with tr-band on.
--- NOTE | 2018-10-20 10:49 | NUR ---
tR-BAND REMOVED AT 1030 post waiting 30 min. Pt right radial site dabbed with wet cloth,dabbed dry. Applied cloth dot to right radial site. Removed left iv from hand. Pt jarrett well. Pt able to move about pain decreases pt has chronic pain lives in 8/10 pain scale. Pt ambulatory sicharged via wheelchair at 1145.
== END 2018-10-20 11:30 | disposition home or self-care (01) ==
LOC: MHTC 05:37
DX: Z01.810 Encounter for preprocedural cardiovascular examination (principal); I27.82 Chronic pulmonary embolism; I27.20 Pulmonary hypertension, unspecified; E11.42 Type 2 diabetes mellitus with diabetic polyneuropathy; F41.0 Panic disorder [episodic paroxysmal anxiety]; F32.9 Major depressive disorder, single episode, unspecified; J44.9 Chronic obstructive pulmonary disease, unspecified; F17.210 Nicotine dependence, cigarettes, uncomplicated; E66.01 Morbid (severe) obesity due to excess calories; Z68.41 Body mass index [BMI] 40.0-44.9, adult; Z86.718 Personal history of other venous thrombosis and embolism; Z79.01 Long term (current) use of anticoagulants; Z91.018 Allergy to other foods; Z88.6 Allergy status to analgesic agent; Z88.1 Allergy status to other antibiotic agents; Z88.8 Allergy status to other drugs, medicaments and biological substances; Z79.899 Other long term (current) drug therapy; Z79.84 Long term (current) use of oral hypoglycemic drugs
CPT/HCPCS: 82947; 93454; 99152; 99153; C1769; C1894; J1644; J2250; J3010; J7030; Q9967

== ENCOUNTER → 2019-04-09 | Outpatient (CLI) | payer OTHER | END | disposition home or self-care (01) | LOC: LAB EV 16:13 → LAB SHORT 16:13 | DX: Z09 Encounter for follow-up examination after completed treatment for conditions other than malignant neoplasm (principal); Z86.711 Personal history of pulmonary embolism | CPT/HCPCS: 85379 ==

== ENCOUNTER → 2019-04-25 | Outpatient (CLI) | payer OTHER ==
[2019-04-28 03:11] LABS: COTININE Positive ng/mL (Cutoff=300)
== END | disposition home or self-care (01) ==
LOC: LAB SHORT 15:06 → OLS 15:06
PROVIDERS: Orthopaedic Surgery
DX: F17.200 Nicotine dependence, unspecified, uncomplicated (principal)

== ENCOUNTER 2019-05-24 16:16 | Observation (INO) | payer OTHER ==
[~2019-05-24] VITALS: Ht 177.8 cm; Wt 138.6 kg
[~2019-05-24 16:16] MED LIST changes: +XARELTO20 MG PO
[2019-05-24] MEDS ORDERED: OMEP20ER PO (16:51)
[2019-05-24 16:54] LABS: BASOPHILS ABSOLUTE AUTO 0.02 K/mm3 (0.00-0.23); BASOPHILS PERCENT AUTO 0 % (0-2); EOSINOPHILS ABSOLUTE AUTO 0.02 K/mm3 (0.00-0.68); EOSINOPHILS PERCENT AUTO 0 % (0-6); Hematocrit 42.9 % (33.0-51.0); Hemoglobin 14.4 g/dL (11.5-16.0); IMMATURE GRAN ABSOLUTE AUTO 0.03 K/mm3 (0.00-0.10); IMMATURE GRAN PERCENT AUTO 0 % (0-1); LYMPHOCYTES ABSOLUTE AUTO 2.58 K/mm3 (0.84-5.20); LYMPHOCYTES PERCENT AUTO 35 % (21-46); MONOCYTES ABSOLUTE AUTO 0.52 K/mm3 (0.16-1.47); MONOCYTES PERCENT AUTO 7 % (4-13); Mean Corpuscular HGB 31.6 pg (26.0-34.0); Mean Corpuscular HGB Conc 33.6 g/dL (31.5-36.5); Mean Corpuscular Volume 94 fL (80-100); Mean Platelet Volume 10.2 fL (9.1-12.4); NEUTROPHILS ABSOLUTE AUTO 4.26 K/mm3 (1.96-9.15); NEUTROPHILS PERCENT AUTO 57 % (41-73); Platelet Count 187 K/mm3 (150-400); RDW Coefficient Variation 13.9 % (11.7-14.2); RDW Standard Deviation 47.9 fL (35.1-46.3); Red Blood Cell Count 4.55 M/mm3 (3.80-5.20); White Blood Cell Count 7.43 K/mm3 (4.00-11.30)
[2019-05-24 17:17] LABS: Alanine Aminotransfer (ALT/SGP 50 U/L (12-78); Albumin, Blood 3.7 g/dL (3.4-5.0); Alk Phos 63 U/L (50-136); Anion Gap 7 mmol/L (6-16); Aspartate Aminotrans (AST/SGOT 36 U/L (12-37); Bilirubin, Total 0.5 mg/dL (0.1-1.0); Blood Urea Nitrogen 16 mg/dL (8-24); Bun/Creatinine Ratio 30.2 (12.0-20.0); CO2, Blood 25 mmol/L (21-32); Chloride, Blood 109 mmol/L (98-108); Creatinine, Blood 0.53 mg/dL (0.40-1.00); Globulin, Blood 3.6 g/dL (2.2-4.0); Glomerular Filtration Rate >60 (60-); Glucose, Blood 132 mg/dL (70-99); Potassium, Blood 3.7 mmol/L (3.5-5.5); Sodium, Blood 141 mmol/L (136-145); Total Protein, Blood 7.3 g/dL (6.4-8.2)
[2019-05-24 17:56] LABS: Source, Urine Clean Catch
[2019-05-24] MEDS ORDERED: CLON.5 PO (18:07)
[2019-05-24] MEDS ORDERED: BUDESONIDE-FO10.2 G1 INH (18:08)
[2019-05-24] MEDS ORDERED: SPIRIVA RESPIMAT4 GM INH (18:09)
[2019-05-24 18:19] LABS: Appearance, Urine Clear (Clear); Bilirubin, Urine Neg (Neg); Blood, Urine Neg (Neg); Color, Urine Yellow (P-Yellow); Glucose Qualitative, Urine Neg (Neg); Ketones, Urine Neg (Neg); Leukocyte Esterase, Urine Neg (Neg); Nitrite, Urine Neg (Neg); Protein, Urine 1+ (Neg); Specific Gravity, Urine 1.025 (1.003-1.022); Urobilinogen, Urine NORM (Normal)
[2019-05-24] MEDS ORDERED: ALBU90OI INH (18:22)
[2019-05-25 03:54] LABS: BASOPHILS ABSOLUTE AUTO 0.02 K/mm3 (0.00-0.23); BASOPHILS PERCENT AUTO 0 % (0-2); EOSINOPHILS PERCENT AUTO 0 % (0-6); Hematocrit 39.5 % (33.0-51.0); Hemoglobin 12.9 g/dL (11.5-16.0); IMMATURE GRAN ABSOLUTE AUTO 0.03 K/mm3 (0.00-0.10); IMMATURE GRAN PERCENT AUTO 0 % (0-1); LYMPHOCYTES ABSOLUTE AUTO 1.64 K/mm3 (0.84-5.20); LYMPHOCYTES PERCENT AUTO 20 % (21-46); MONOCYTES ABSOLUTE AUTO 0.61 K/mm3 (0.16-1.47); MONOCYTES PERCENT AUTO 7 % (4-13); Mean Corpuscular HGB 31.5 pg (26.0-34.0); Mean Corpuscular HGB Conc 32.7 g/dL (31.5-36.5); Mean Platelet Volume 10.4 fL (9.1-12.4); NEUTROPHILS ABSOLUTE AUTO 6.07 K/mm3 (1.96-9.15); NEUTROPHILS PERCENT AUTO 73 % (41-73); Platelet Count 171 K/mm3 (150-400); RDW Coefficient Variation 14.2 % (11.7-14.2); Red Blood Cell Count 4.09 M/mm3 (3.80-5.20); White Blood Cell Count 8.37 K/mm3 (4.00-11.30)
[2019-05-25 03:56] LABS: Mean Corpuscular Volume 97 fL (80-100)
[2019-05-25 04:27] LABS: Alanine Aminotransfer (ALT/SGP 47 U/L (12-78); Albumin, Blood 3.5 g/dL (3.4-5.0); Albumin/Globulin Ratio 1.1 (0.8-1.8); Alk Phos 54 U/L (50-136); Anion Gap 8 mmol/L (6-16); Aspartate Aminotrans (AST/SGOT 27 U/L (12-37); Bilirubin, Total 0.3 mg/dL (0.1-1.0); Blood Urea Nitrogen 17 mg/dL (8-24); Bun/Creatinine Ratio 24.2 (12.0-20.0); CO2, Blood 25 mmol/L (21-32); Calcium, Blood 8.6 mg/dL (8.5-10.1); Chloride, Blood 107 mmol/L (98-108); Globulin, Blood 3.1 g/dL (2.2-4.0); Glomerular Filtration Rate >60 (60-); Glucose, Blood 132 mg/dL (70-99); Potassium, Blood 4.2 mmol/L (3.5-5.5); Sodium, Blood 140 mmol/L (136-145); Total Protein, Blood 6.6 g/dL (6.4-8.2)
--- NOTE | 2019-05-25 06:37 | NUR ---
SHIFT SUMMARY NEW ADMIT THIS SHIFT. AAOX4. NPO THIS AM. DISCOMFORT CONTROLLED WITH 0.5MG IV DILAUDID Q2H. NO NAUSEA/EMESIS. ORIENTED TO ROOM + CALL LIGHT USE. SURGICAL PACKET ON FRONT OF CHART. QUESTIONS ANSWERED REGARDING TX. IVF PER ORDERS. PT RESTING IN BED AT THIS TIME WITH CALL LIGHT IN REACH.
--- NOTE | 2019-05-25 10:29 | NUR ---
TO [facility] ADMISSION TO UNIT STARTED. History, Chart, Medications and Allergies reviewed before start of procedure.Patient confirms NPO status and agrees with scheduled surgery.
--- NOTE | 2019-05-25 15:19 | NUR ---
LEFT MESSAGE FOR KERRI WILKS PURSUANT TO REQUEST FROM PT TO CALL WITH STATUS.
--- NOTE | 2019-05-25 17:49 | NUR ---
SHIFT SUMMARY PT A&OX4, VSS, S/P LAP CHRISTINA, 4 STERIS CDI. PAIN MANAGED WITH 10 MG OXY. ESTEFANY PO, DENIES N&V. AMB INDEPENDENTLY TO BRP, UP TO CHAIR. VOIDING WELL. WILL REPORT TO ONCOMING NOC RN.
--- NOTE | 2019-05-26 04:13 | NUR ---
SHIFT SUMMARY POD#1 LAP CHRISTINA. AAOX4. DISCOMFORT CONTROLLED WITH 2 NORCO Q4H + 1MG IV DILAUDID X2 THIS SHIFT. NO NAUSEA/EMESIS. ABD INCISIONS X4 WITH STERI STRIPS, SCANT AMOUNT DRY SS DRAINAGE, NO INCREASE THIS SHIFT. ABD SOFT/TENDER WITH PALPATION. PT REPORTING FLATUS POST OP + BURPING, NO BM. AMBULATING IN HALLS INDEPENDENTLY. GOOD PO INTAKE + URINE OUTPUT. PT RESTED INFREQUENTLY T/O NIGHT R/T ANXIETY. PT NOW RESTING THIS AM WITH CALL LIGHT IN REACH.
[2019-05-26] MEDS ORDERED: OXYC5 PO (10:44)
--- NOTE | 2019-05-26 13:04 | NUR ---
DISCHARGE SUMMARY A&OX4,VSS, WALKED OFF FLOOR WITH RN TO MEET SO WITH ALL PERSONAL POSSESIONS INCLUDING DISCHARGE PACKET AND ONE NARCOTIC SCRIPT. DC INSTRUCTIONS PROVIDED. DC INSTUCTIONS PROVIDED. PT REP UNDERSTANDING THOSE INSTURCTIONS INCLUDING WHEN TO CALL THE SURGERON, AND FU APPT, OK TO SHOWER, NO TUB BATHS, SHORT LALA AMBULATION, S/SX OF INFECTION, TCDB AND INS TO CONTINUE AT HOME. IV DC'D.
== END 2019-05-26 11:27 | disposition home or self-care (01) ==
LOC: ER 16:16 → SURS 16:17 → ER 20:37 → SURS 20:37
PROVIDERS: Emergency Medicine; Nurse Practitioner; ADMIT Surgery
DX: K80.12 Calculus of gallbladder with acute and chronic cholecystitis without obstruction (principal); E11.40 Type 2 diabetes mellitus with diabetic neuropathy, unspecified; J44.9 Chronic obstructive pulmonary disease, unspecified; F41.9 Anxiety disorder, unspecified; F32.9 Major depressive disorder, single episode, unspecified; F43.10 Post-traumatic stress disorder, unspecified; Z79.01 Long term (current) use of anticoagulants; Z79.899 Other long term (current) drug therapy; Z85.41 Personal history of malignant neoplasm of cervix uteri; Z86.711 Personal history of pulmonary embolism; Z86.718 Personal history of other venous thrombosis and embolism; Z87.891 Personal history of nicotine dependence; Z88.1 Allergy status to other antibiotic agents; Z88.6 Allergy status to analgesic agent; Z88.8 Allergy status to other drugs, medicaments and biological substances; Z90.49 Acquired absence of other specified parts of digestive tract; Z90.710 Acquired absence of both cervix and uterus; Z98.51 Tubal ligation status
CPT/HCPCS: 36415; 80053; 82947; 83690; 85025; 96361; 96374; 96375; 96376; 99285-25; J0330; J0690; J1100; J1170; J2250; J2405; J2704; J2710; J3010; J7030; J7120

== ENCOUNTER → 2020-01-29 | Outpatient (CLI) | payer OTHER ==
[~2020-01-29] MED LIST changes: +BUDESONIDE-FO10.2 G1 INH; +HYDROCODONE-AC1 EAC7 PO; +PRILOSEC OTC20 MG PO; +Prednisone50 MG PO; +SPIRIVA RESPIMAT4 G3 INH; +SPIRIVA RESPIMAT4 GM INH; +Zithromax250 MG PO
== END ==
LOC: LAB 13:24
DX: D48.5 Neoplasm of uncertain behavior of skin (principal); D22.5 Melanocytic nevi of trunk; L60.9 Nail disorder, unspecified; L08.9 Local infection of the skin and subcutaneous tissue, unspecified; R21 Rash and other nonspecific skin eruption; Z71.89 Other specified counseling
CPT/HCPCS: 87070; 87205

== ENCOUNTER 2020-08-21 22:24 | Emergency (ER) | payer OTHER ==
[~2020-08-21] VITALS: Ht 172.7 cm; Wt 136.1 kg
[~2020-08-21 22:24] MED LIST changes: -HYDROCODONE-AC1 EAC7 PO; -PRILOSEC OTC20 MG PO; -Prednisone50 MG PO; -Zithromax250 MG PO
[2020-08-21 22:50] LABS: BASOPHILS ABSOLUTE AUTO 0.02 K/mm3 (0.00-0.23); BASOPHILS PERCENT AUTO 0 % (0-2); EOSINOPHILS ABSOLUTE AUTO 0.12 K/mm3 (0.00-0.68); EOSINOPHILS PERCENT AUTO 2 % (0-6); Hematocrit 42.4 % (33.0-51.0); Hemoglobin 14.2 g/dL (11.5-16.0); IMMATURE GRAN ABSOLUTE AUTO 0.02 K/mm3 (0.00-0.10); IMMATURE GRAN PERCENT AUTO 0 % (0-1); LYMPHOCYTES ABSOLUTE AUTO 2.79 K/mm3 (0.84-5.20); LYMPHOCYTES PERCENT AUTO 36 % (21-46); MONOCYTES ABSOLUTE AUTO 0.52 K/mm3 (0.16-1.47); MONOCYTES PERCENT AUTO 7 % (4-13); Mean Corpuscular HGB 30.9 pg (26.0-34.0); Mean Corpuscular HGB Conc 33.5 g/dL (31.5-36.5); Mean Corpuscular Volume 92 fL (80-100); Mean Platelet Volume 10.5 fL (9.1-12.4); NEUTROPHILS ABSOLUTE AUTO 4.36 K/mm3 (1.96-9.15); NEUTROPHILS PERCENT AUTO 56 % (41-73); Platelet Count 168 K/mm3 (150-400); RDW Coefficient Variation 13.3 % (11.7-14.2); White Blood Cell Count 7.83 K/mm3 (4.00-11.30)
[2020-08-21 23:10] LABS: Alanine Aminotransfer (ALT/SGP 89 U/L (12-78); Albumin, Blood 3.5 g/dL (3.4-5.0); Alk Phos 62 U/L (50-136); Anion Gap 6 mmol/L (6-16); Aspartate Aminotrans (AST/SGOT 64 U/L (12-37); Bilirubin, Total 0.3 mg/dL (0.1-1.0); Blood Urea Nitrogen 17 mg/dL (8-24); Bun/Creatinine Ratio 24.2 (12.0-20.0); CO2, Blood 27 mmol/L (21-32); Calcium, Blood 8.5 mg/dL (8.5-10.1); Chloride, Blood 110 mmol/L (98-108); Globulin, Blood 3.6 g/dL (2.2-4.0); Glomerular Filtration Rate >60 (60-); Glucose, Blood 121 mg/dL (70-99); Potassium, Blood 3.7 mmol/L (3.5-5.5); Sodium, Blood 143 mmol/L (136-145); Total Protein, Blood 7.1 g/dL (6.4-8.2); Troponin I <0.015 ng/mL (0.000-0.040)
[2020-08-21] MEDS ORDERED: HYDROCODONE-AC1 EAC7 PO (23:41)
[2020-08-21] MEDS ORDERED: PRILOSEC OTC20 MG PO (23:41)
[2020-08-21] MEDS ORDERED: Prednisone50 MG PO (23:44)
[2020-08-21] MEDS ORDERED: Zithromax250 MG PO (23:44)
[2020-08-21] MEDS ORDERED: BENZ100A PO (23:44)
== END 2020-08-22 00:18 | disposition home or self-care (01) ==
LOC: ER 22:24
PROVIDERS: Emergency Medicine
DX: J44.0 Chronic obstructive pulmonary disease with (acute) lower respiratory infection (principal); J20.9 Acute bronchitis, unspecified; J44.1 Chronic obstructive pulmonary disease with (acute) exacerbation; Z79.899 Other long term (current) drug therapy; Z88.6 Allergy status to analgesic agent; Z88.1 Allergy status to other antibiotic agents; Z88.8 Allergy status to other drugs, medicaments and biological substances; Z79.01 Long term (current) use of anticoagulants; Z87.891 Personal history of nicotine dependence
CPT/HCPCS: 71046; 80053; 84484; 85025; 85379; 93005; 93010; 94640; 99284-25; A9270; J7512

== ENCOUNTER → 2020-10-04 | Outpatient (CLI) | payer OTHER ==
[~2020-10-04] MED LIST changes: +HYDROCODONE-AC1 EAC7 PO; +PRILOSEC OTC20 MG PO; +Prednisone50 MG PO; +Zithromax250 MG PO
[2020-10-08 07:09] LABS: HSV-1 DNA Negative (Negative); HSV-2 DNA Negative (Negative)
== END ==
LOC: LAB SHORT 14:40 → LAB 14:40
PROVIDERS: Physician Assistant
DX: L08.9 Local infection of the skin and subcutaneous tissue, unspecified (principal); Z88.8 Allergy status to other drugs, medicaments and biological substances; Z88.6 Allergy status to analgesic agent; Z88.1 Allergy status to other antibiotic agents; Z91.09 Other allergy status, other than to drugs and biological substances
CPT/HCPCS: 87070; 87205; 87529

== ENCOUNTER → 2020-10-21 | Outpatient (CLI) | payer OTHER ==
[2020-10-23 16:53] LABS: CORONAVIRUS (COVID19) CSH-NRL Negative (Negative)
== END | disposition home or self-care (01) ==
LOC: LAB SHORT 19:09 → LAB 19:09
PROVIDERS: Physician Assistant Medical
DX: R05 Cough (principal); Z20.822 Contact with and (suspected) exposure to COVID-19
CPT/HCPCS: U0003

== ENCOUNTER 2021-02-11 11:02 | Emergency (ER) | payer OTHER ==
[~2021-02-11] VITALS: Ht 177.8 cm; Wt 136.1 kg
[2021-02-11 11:31] LABS: BASOPHILS ABSOLUTE AUTO 0.02 K/mm3 (0.00-0.23); BASOPHILS PERCENT AUTO 0 % (0-2); EOSINOPHILS ABSOLUTE AUTO 0.11 K/mm3 (0.00-0.68); EOSINOPHILS PERCENT AUTO 2 % (0-6); Hematocrit 40.8 % (33.0-51.0); Hemoglobin 13.8 g/dL (11.5-16.0); IMMATURE GRAN ABSOLUTE AUTO 0.02 K/mm3 (0.00-0.10); IMMATURE GRAN PERCENT AUTO 0 % (0-1); LYMPHOCYTES ABSOLUTE AUTO 2.54 K/mm3 (0.84-5.20); LYMPHOCYTES PERCENT AUTO 39 % (21-46); MONOCYTES ABSOLUTE AUTO 0.47 K/mm3 (0.16-1.47); MONOCYTES PERCENT AUTO 7 % (4-13); Mean Corpuscular HGB 31.1 pg (26.0-34.0); Mean Corpuscular HGB Conc 33.8 g/dL (31.5-36.5); Mean Corpuscular Volume 92 fL (80-100); Mean Platelet Volume 10.1 fL (9.1-12.4); NEUTROPHILS ABSOLUTE AUTO 3.39 K/mm3 (1.96-9.15); NEUTROPHILS PERCENT AUTO 52 % (41-73); Platelet Count 185 K/mm3 (150-400); RDW Coefficient Variation 13.4 % (11.7-14.2); RDW Standard Deviation 45.3 fL (35.1-46.3); Red Blood Cell Count 4.44 M/mm3 (3.80-5.20); White Blood Cell Count 6.55 K/mm3 (4.00-11.30)
[2021-02-11 11:54] LABS: Alanine Aminotransfer (ALT/SGP 94 U/L (12-78); Albumin, Blood 3.1 g/dL (3.4-5.0); Albumin/Globulin Ratio 0.8 (0.8-1.8); Alk Phos 63 U/L (50-136); Anion Gap 7 mmol/L (6-16); Aspartate Aminotrans (AST/SGOT 87 U/L (12-37); Bilirubin, Total 0.3 mg/dL (0.1-1.0); Blood Urea Nitrogen 12 mg/dL (8-24); Bun/Creatinine Ratio 18.7 (12.0-20.0); CO2, Blood 24 mmol/L (21-32); Calcium, Blood 8.5 mg/dL (8.5-10.1); Chloride, Blood 107 mmol/L (98-108); Creatinine, Blood 0.64 mg/dL (0.40-1.00); Globulin, Blood 3.9 g/dL (2.2-4.0); Glomerular Filtration Rate >60 (60-); Glucose, Blood 153 mg/dL (70-99); Potassium, Blood 3.9 mmol/L (3.5-5.5); Sodium, Blood 138 mmol/L (136-145); Troponin I <0.015 ng/mL (0.000-0.040)
[2021-02-11 14:13] LABS: Influenza A, PCR NEGATIVE (NEGATIVE); Influenza B, PCR NEGATIVE (NEGATIVE); Resp Syncytial Virus, PCR NEGATIVE (NEGATIVE); SARS-Cov-2 (COVID-19) PCR, MMC NEGATIVE (NEGATIVE)
[2021-02-11] MEDS ORDERED: ELIQUIS5 M2 PO (15:26)
== END 2021-02-11 15:59 | disposition home or self-care (01) ==
LOC: ER 11:02
PROVIDERS: Emergency Medicine; Physician Assistant
DX: R07.9 Chest pain, unspecified (principal); Z20.822 Contact with and (suspected) exposure to COVID-19; E11.40 Type 2 diabetes mellitus with diabetic neuropathy, unspecified; J44.9 Chronic obstructive pulmonary disease, unspecified; Z87.891 Personal history of nicotine dependence; Z79.899 Other long term (current) drug therapy
CPT/HCPCS: 0241U; 36415; 71260; 80053; 83690; 83880; 84484; 85025; 93005; 93010; 99285-25; Q9967

== ENCOUNTER 2021-04-07 17:53 | Emergency (ER) | payer OTHER ==
[~2021-04-07] VITALS: Ht 177.8 cm; Wt 143.8 kg
[~2021-04-07 17:53] MED LIST changes: +ELIQUIS5 M2 PO
== END 2021-04-07 19:08 | disposition home or self-care (01) ==
LOC: ER 17:53
DX: M25.561 Pain in right knee (principal); E11.9 Type 2 diabetes mellitus without complications; F43.9 Reaction to severe stress, unspecified; G62.9 Polyneuropathy, unspecified; J45.909 Unspecified asthma, uncomplicated; Z88.8 Allergy status to other drugs, medicaments and biological substances; Z88.6 Allergy status to analgesic agent; Z85.41 Personal history of malignant neoplasm of cervix uteri; Z88.1 Allergy status to other antibiotic agents; Z79.899 Other long term (current) drug therapy; Z87.891 Personal history of nicotine dependence; Z91.018 Allergy to other foods; W01.198A Fall on same level from slipping, tripping and stumbling with subsequent striking against other object, initial encounter
CPT/HCPCS: 73562-RT; 99284-25; A9270

== ENCOUNTER → 2022-03-02 | Outpatient (CLI) | payer OTHER | END | disposition home or self-care (01) | LOC: LAB 17:55 → LAB SHORT 17:55 | PROVIDERS: Family Medicine | DX: G89.4 Chronic pain syndrome (principal) | CPT/HCPCS: G0480 ==

== ENCOUNTER 2022-09-21 01:39 | Emergency (ER) | payer OTHER ==
[~2022-09-21] VITALS: Ht 177.8 cm; Wt 131.5 kg
[2022-09-21 02:36] LABS: BASOPHILS ABSOLUTE AUTO 0.02 K/mm3 (0.00-0.23); BASOPHILS PERCENT AUTO 0 % (0-2); EOSINOPHILS ABSOLUTE AUTO 0.07 K/mm3 (0.00-0.68); EOSINOPHILS PERCENT AUTO 1 % (0-6); Hematocrit 40.6 % (33.0-51.0); Hemoglobin 13.9 g/dL (11.5-16.0); IMMATURE GRAN ABSOLUTE AUTO 0.02 K/mm3 (0.00-0.10); IMMATURE GRAN PERCENT AUTO 0 % (0-1); LYMPHOCYTES ABSOLUTE AUTO 2.42 K/mm3 (0.84-5.20); LYMPHOCYTES PERCENT AUTO 29 % (21-46); MONOCYTES ABSOLUTE AUTO 0.61 K/mm3 (0.16-1.47); MONOCYTES PERCENT AUTO 7 % (4-13); Mean Corpuscular HGB Conc 34.2 g/dL (31.5-36.5); Mean Corpuscular Volume 88 fL (80-100); Mean Platelet Volume 9.8 fL (9.1-12.4); NEUTROPHILS ABSOLUTE AUTO 5.13 K/mm3 (1.96-9.15); NEUTROPHILS PERCENT AUTO 62 % (41-73); Platelet Count 193 K/mm3 (150-400); RDW Coefficient Variation 13.6 % (11.7-14.2); RDW Standard Deviation 43.8 fL (35.1-46.3); Red Blood Cell Count 4.63 M/mm3 (3.80-5.20); White Blood Cell Count 8.27 K/mm3 (4.00-11.30)
[2022-09-21 02:39] VITALS: BP 109/70
[2022-09-21 02:51] LABS: International Normalized Ratio 1.09; Prothrombin Time Results 11.4 Sec (9.7-11.5)
[2022-09-21 02:54] LABS: Alanine Aminotransfer (ALT/SGP 30 U/L (12-78); Albumin, Blood 3.8 g/dL (3.4-5.0); Albumin/Globulin Ratio 1.1 (0.8-1.8); Alk Phos 49 U/L (50-136); Anion Gap 8 mmol/L (6-16); Aspartate Aminotrans (AST/SGOT 35 U/L (12-37); Bilirubin, Total 0.6 mg/dL (0.1-1.0); Blood Urea Nitrogen 17 mg/dL (8-24); CO2, Blood 27 mmol/L (21-32); Calcium, Blood 8.8 mg/dL (8.5-10.1); Chloride, Blood 102 mmol/L (98-108); Creatinine, Blood 0.85 mg/dL (0.40-1.00); Ethanol (Alcohol), Blood, Med <3 mg/dL; Globulin, Blood 3.4 g/dL (2.2-4.0); Glomerular Filtration Rate 79 (60-); Glucose, Blood 108 mg/dL (70-99); Potassium, Blood 3.5 mmol/L (3.5-5.5); Sodium, Blood 137 mmol/L (136-145); Total Protein, Blood 7.2 g/dL (6.4-8.2)
== END 2022-09-21 04:00 | disposition home or self-care (01) ==
LOC: ER 01:39
PROVIDERS: Student in an Organized Health Care Education/Training Program
DX: S00.93XA Contusion of unspecified part of head, initial encounter (principal); G89.29 Other chronic pain; M54.2 Cervicalgia; R07.9 Chest pain, unspecified; M54.9 Dorsalgia, unspecified; Z88.8 Allergy status to other drugs, medicaments and biological substances; Z88.6 Allergy status to analgesic agent; Z88.1 Allergy status to other antibiotic agents; Z79.899 Other long term (current) drug therapy; W18.30XA Fall on same level, unspecified, initial encounter; Z87.891 Personal history of nicotine dependence; E11.40 Type 2 diabetes mellitus with diabetic neuropathy, unspecified; J44.9 Chronic obstructive pulmonary disease, unspecified; F43.10 Post-traumatic stress disorder, unspecified
CPT/HCPCS: 70450; 71260; 72125; 74177; 80053; 83690; 85025; 85610; 96374; 96375; 99285-25; A9270; J1885; J3010; Q9967